=== PATIENT | female | born 1955 | race Caucasian/White ===

== ENCOUNTER 2020-03-18 07:41 | Day surgery (SDC) | payer MEDICAID ==
[2020-03-11 14:47] LABS: BASOPHILS # (AUTO) 0.1 X10'3 (0-0.2); BASOPHILS % (AUTO) 0.9 % (0-1); EOSINOPHILS # (AUTO) 0.2 X10'3 (0-0.9); LYMPHOCYTES # (AUTO) 1.6 X10'3 (1.1-4.8); LYMPHOCYTES % (AUTO) 21.7 % (21-51); MEAN CORPUSCULAR HEMOGLOBIN 30.6 PG (27.0-31.0); MEAN CORPUSCULAR HGB CONC 33.6 g/dL (33.0-36.5); MEAN PLATELET VOLUME 7.1 FL (7.4-10.4); MONOCYTES # (AUTO) 0.7 X10'3 (0-0.9); MONOCYTES % (AUTO) 9.3 % (2-12); NEUTROPHILS # (AUTO) 4.9 X10'3 (1.8-7.7); NEUTROPHILS % (AUTO) 65.1 % (42-75); PRE OP HEMATOCRIT 41.8 % (35.0-45.0); PRE OP HEMOGLOBIN 14.1 g/dL (12.0-16.0); PRE OP PLATELET COUNT 267 X10'3 (140-440); RED BLOOD COUNT 4.59 X10'6 (4.20-5.60); RED CELL DISTRIBUTION WIDTH 13.6 % (11.5-14.5)
[2020-03-11 14:59] LABS: ALBUMIN 3.9 G/DL (3.4-5.0); ALBUMIN/GLOBULIN RATIO 1.3 (1.1-1.5); ALKALINE PHOSPHATASE 86 IU/L (46-116); BLOOD UREA NITROGEN 21 MG/DL (7-18); BUN/CREATININE RATIO 22.3 (6.6-38.0); CHLORIDE 105 MMOL/L (99-107); CREATININE 0.94 MG/DL (0.40-0.90); PRE OP ALT 22 U/L (30-65); PRE OP ANION GAP 8 (8-16); PRE OP AST 18 U/L (10-37); PRE OP BILIRUB, TOTAL 0.4 MG/DL (0.0-1.0); PRE OP GLUCOSE 88 MG/DL (70-104); PRE OP POTASSIUM 3.6 MMOL/L (3.4-5.1); PRE OP SODIUM 140 MMOL/L (135-145); TOTAL CARBON DIOXIDE 26.7 MMOL/L (24-32); eGFR 60 ML/MIN
[2020-03-18] VITALS (9 sets, daily range): BP systolic 92–138; BP diastolic 51–89
[~2020-03-18] VITALS: Ht 170.2 cm; Wt 91.3 kg
[~2020-03-18 07:41] MED LIST: BUPIVAcaine/PF 2.5mg/ml (0.25%) 10ml vial ONE; BUSP15TA3 PO; CITA40TA17 PO; HYDR12.55 PO; MECL-159 PO; METH750T3 PO; OMEP20TA23 PO; OXYB5TAB16 PO; ceFAZolin 2gm in dextrose, iso 50 ML IV ONE; famotidine 20mg tablet PO ONE; ringers solution, lacted 1,000 ML IV SCH
[2020-03-18] MEDS ORDERED: fentaNYL/PF 50MCG/1 ML 2ML syringe IV PRN ×2 (08:25)
[2020-03-18] MEDS ORDERED: hydrALAZINE 20mg/ml inj. IV PRN (08:25)
[2020-03-18] MEDS ORDERED: morphine 2 MG/ML inj. syringe IV PRN (08:25)
[2020-03-18] MEDS ORDERED: morphine 4 MG/ML inj SYRINge IV PRN (08:25)
[2020-03-18] MEDS ORDERED: ondansetron/PF 4mg/2ml inj IV PRN (08:25)
[2020-03-18] MEDS ORDERED: labetalol 20mg/4ml (5mg/ml) syringe IV PRN (08:25)
[2020-03-18] MEDS ORDERED: ringers solution, lacted 1,000 ML IV SCH (08:25)
[2020-03-18] MEDS ORDERED: fentaNYL/PF 50MCG/1 ML 2ML syringe ONE (10:35)
[2020-03-18] MEDS ORDERED: MIDAZolam 5mg/5ml vial ONE (10:35)
--- NOTE | 2020-03-18 11:13 | NUR ---
Received from OR via [facility], accompanied by Anesthesiologist DR ROWE and report given by Anesthesiologist. 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 Addendum: 03/18/20 at 1149 by Madison Juan RN Amended: Links added.
--- NOTE | 2020-03-18 12:33 | NUR ---
PT UP AND ABLE TO AMBULATE SAFELY, VOIDED X 1. D/C INSTRUCTIONS GIVEN AND GONE OVER W/PT WHO VERBALIZED UNDERSTANDING. PT D/CD TO HOME VIA W/C TO PRIVATE VEHICLE W/O INCIDENT. Addendum: 03/18/20 at 1244 by Madison Juan RN Amended: Links added.
== END 2020-03-18 12:33 | disposition home or self-care (01) ==
LOC: PAS 07:41
PROVIDERS: ATTEND Orthopaedic Surgery Hand Surgery
DX: G56.02 Carpal tunnel syndrome, left upper limb (principal); F32.9 Major depressive disorder, single episode, unspecified; J44.9 Chronic obstructive pulmonary disease, unspecified; I10 Essential (primary) hypertension; M19.90 Unspecified osteoarthritis, unspecified site; Z20.828 Contact with and (suspected) exposure to other viral communicable diseases; Z87.442 Personal history of urinary calculi; Z79.899 Other long term (current) drug therapy; Z90.49 Acquired absence of other specified parts of digestive tract; Z98.890 Other specified postprocedural states
CPT/HCPCS: 29848; 36415; 80053; 82948; 85025; 87635; 93005; J2250; J3010; J3490; A4215; A7000; J7120